=== PATIENT | female | born 1995 | race Two or more races ===

== ENCOUNTER 2016-05-14 21:31 | Emergency (ER) | payer OTHER ==
[2016-05-14] MEDS ORDERED: Ibuprofen TAB* 600 MG PO ONE (22:41)
[2016-05-14] MEDS ORDERED: NS 0.9% 1000 ML* 1,000 ML IV ONE (22:50)
--- NOTE | 2016-05-14 22:56 | ED ---
Influenza-Like Illness - HPI Summary HPI Summary: Pt here w/ flu-like sx x 24 hours. Started as dry cough around 18:00 last night - progressed to worse cough with SANTIAGO and low back pain/body aches. She has decreased appetite and vomited once. Has been able to drink fluids the past 1 hour but has not been drinking all day. Reports she took a tylenol earlier today. No diarrhea or ab pain. Denies nasal congestion, otalgia, rash. Boyfriend has same sx and is here as well. Pt received influenza vaccine as well as meningococcal vaccine. Also reports vaginal itching, irritation and d/c x 2 months. Has tried amoxicillin she has left over as well as monistat w/o relief. Has unprotected intercourse with boyfriend at times. Denies pelvic pain. - History of Current Complaint Chief Complaint: EDGeneral Time Seen by Provider: 05/14/16 22:29 Hx Obtained From: Patient - Allergy/Home Medications Allergies/Adverse Reactions: Allergies Allergy/AdvReac Type Severity Reaction Status Date / Time No Known Allergies Allergy Verified 05/14/16 22:15 PMH/Surg Hx/FS Hx/Imm Hx Previously Healthy: Yes Endocrine/Hematology History: Denies: Autoimmune Disease Respiratory History: Denies: Hx Asthma Infectious Disease History: No Infectious Disease History: Denies: Traveled Outside the [place] in Last 30 Days - Family History Known Family History: Positive: None - Social History Occupation: Student Lives: With Family Alcohol Use: Occasionally Substance Use Type: Reports: Marijuana - occasionally Hx Tobacco Use: No Smoking Status (MU): Never Smoked Tobacco Review of Systems Constitutional: Other - see HPI Eyes: Negative ENT: Negative Negative: Chest Pain Positive: Cough - see HPI Gastrointestinal: Other - see HPI Positive: see HPI Musculoskeletal: Other - see HPI Skin: Negative Positive: Headache. Negative: Weakness, Paresthesia, Numbness, Syncope, Slurred Speech Psychological: Normal All Other Systems Reviewed And Are Negative: Yes Physical Exam Triage Information Reviewed: Yes Vital Signs On Initial Exam: Initial Vitals Temp Pulse Resp BP Pulse Ox 100.6 F 117 16 105/64 100 05/14/16 21:40 05/14/16 21:40 05/14/16 21:40 05/14/16 21:40 05/14/16 21:40 Vital Signs Reviewed: Yes Appearance: Positive: No Pain Distress, Well-Nourished - appears fatigued Skin: Positive: Warm, Dry - flushed cheeks Head/Face: Positive: Normal Head/Face Inspection - sinuses NTTP Eyes: Positive: Normal, EOMI, Conjunctiva Clear ENT: Positive: Normal ENT inspection, Hearing grossly normal, Pharynx normal, TMs normal. Negative: Nasal congestion, Nasal drainage, Tonsillar swelling, Tonsillar exudate Neck: Positive: Supple, Nontender, No Lymphadenopathy Respiratory/Lung Sounds: Positive: Clear to Auscultation - coughing w/ deep inspiration, Breath Sounds Present. Negative: Rales, Rhonchi, Wheezes Cardiovascular: Positive: Pulses are Symmetrical in both Upper and Lower Extremities, Tachycardia, S1, S2 Abdomen Description: Positive: Nontender, No Organomegaly, Soft. Negative: CVA Tenderness (R), CVA Tenderness (L) Bowel Sounds: Positive: Present Pelvic Exam: Positive: external exam normal, bimanual exam normal, no cerv. motion tender, no masses, active bleeding, other - difficult to asses for infectious d/c with heavy menstrual flow but nothing suspicious observed. Negative: cervicitis Musculoskeletal: Positive: Normal, Strength/ROM Intact Neurological: Positive: Normal, Sensory/Motor Intact, Alert, Oriented to Person Place, Time, CN Intact II-III Psychiatric: Positive: Normal Diagnostics - Vital Signs Vital Signs Temp Pulse Resp BP Pulse Ox 05/14/16 21:40 100.6 F 117 16 105/64 100 - Laboratory Lab Statement: Any lab studies that have been ordered have been reviewed, and results considered in the medical decision making process. Re-Evaluation - Re-Evaluation First Eval Change: Improved - minimal improvement - tolerating PO's well Flu Symptom Course/Dx - Course Course Of Treatment: Pt's rapid influenza swab was delayed for processing but eventually revealed to be (+) for Type A. She had little to no relief of sx w/ ibuprofen and 1L of NS. Temp increased from 100 to 102+ F and BP lower at times , but recheck in room was 110's/70's. HR still in 110's. A pelvic exam was performed as pt reports vaginal sx - no PID is observed so tx will be held until swabs return. Pt's CXR is neg for acute pathology (wet read). Acetaminophen, 2 additional liters of fluid and labs ordered to asses for sepsis. Recheck of pt's vital signs indicate a steady improvement in BP, HR now low 100's and temp under 100. Pt sitting up in bed, eating, watching TV. Will d/ c home w/ tamiflu. Dr. Dukes aware. - Diagnoses Provider Diagnoses: Influenza A, Dehydration - Physician Notifications Discussed Care Of Patient With: Dr. Dukes Discharge - Discharge Plan Condition: Stable Disposition: HOME Prescriptions: Oseltamivir CAP* [Tamiflu CAP*] 75 mg PO BID #9 cap Sulfamethox/Trimethoprim DS* [Bactrim DS 800/160 TAB*] 1 tab PO BID #10 tab Patient Education Materials: Influenza (ED), Dehydration (ED) Forms: *School Release, *Work Release Referrals: [facility] REFERR[facility] [Outside] Additional Instructions: Rest Alternate ibuprofen and acetaminophen to reduce fever, headache Complete course of tamiflu Follow-up with PCP or return to ED if symptoms worsen
[2016-05-15] MEDS ORDERED: Acetaminophen TAB* 325 MG PO ONE (01:00)
[2016-05-15] MEDS ORDERED: NS 0.9% 1000 ML* 2,000 ML IV ONE (01:00)
[2016-05-15] MEDS ORDERED: Oseltamivir CAP* 75 MG PO ONE (01:38)
[2016-05-15 01:46] LABS: Urine Bacteria 1+ (Absent); Urine Bilirubin Negative (Negative); Urine Glucose Negative (Negative); Urine Nitrite Negative (Negative)
[2016-05-15 02:11] VITALS: BP 103/59
--- NOTE | 2016-05-15 07:51 | RAD ---
INDICATION: Cough and fever COMPARISON: None TECHNIQUE: PA and lateral views of the chest were obtained. FINDINGS: The heart and mediastinum are normal in size and contour. The lungs are grossly clear. There is no evidence of large pleural effusion. Visualized bones are normal for the patient's age. There is no radiographic evidence of free air beneath the diaphragm IMPRESSION: No radiographic evidence of acute cardiopulmonary disease.
--- NOTE | 2016-05-18 07:28 | PN ---
Progress Note - Progress Note Note: Patient urine culture grew E coli >100,000. Called patient and told her that sent script for bactrim twice a day for 5 days and to start that along with flu medication.
== END 2016-05-15 03:46 | disposition home or self-care (01) ==
LOC: EDSEX → ED 21:31
DX: J11.1 Influenza due to unidentified influenza virus with other respiratory manifestations (principal); E86.0 Dehydration; R05 Cough; R51 Headache; R11.10 Vomiting, unspecified
CPT/HCPCS: 71020; 81003; 81015; 87077; 87086; 87186; 87480; 87491; 87502; 87510; 87591; 87661; 99283; A9270-GY

== ENCOUNTER 2016-11-30 14:00 | Emergency (ER) | payer OTHER ==
[2016-11-30 14:08] VITALS: BP 109/64
--- NOTE | 2016-11-30 14:21 | UC ---
Complaint Female HPI - HPI Summary HPI Summary: 21 y/o female presents to the urgent care c/o of a brown vaginal discharge for the past 2 days. Pt has had recurrent BV and yeast infections for the past year. Pt states her vulva itches and is burning on urination. Pt denies fever, pelvic pain, vaginal bleeding,abdominal pain, no HX of STD's, N/V/.D. LMP: 2016 with regular menstrual cycles. Last PAP done last year negative. Pt is not sexually active. No taking any OCP - History Of Current Complaint Chief Complaint: UCGU Stated Complaint: PERSONAL Time Seen by Provider: 11/30/16 14:10 Hx Obtained From: Patient Hx Last Menstrual Period: 11/12/16 ?: No Onset/Duration: Gradual Onset, Lasting Days - 2 days Timing: Constant Severity Initially: Mild Severity Currently: Moderate Pain Intensity: 5 - touch Pain Scale Used: 0-10 Numeric Character: Burning Aggravating Factor(s): Urination Alleviating Factor(s): Nothing Associated Signs And Symptoms: Positive: Vaginal Discharge - brownish vaginal discharge, Genital Swelling - mild irritation. Negative: Fever, Back Pain, Vaginal Bleeding/Discharge, Nausea, Vomiting(# Of Episodes =), Genital Blisters , Retained Foregin Body (Specify) - Risk Factors Ectopic Risk Factor: Negative Ovarian Torsion Risk Factor: Negative - Allergies/Home Medications Allergies/Adverse Reactions: Allergies Allergy/AdvReac Type Severity Reaction Status Date / Time No Known Allergies Allergy Verified 05/14/16 22:15 Home Medications: Home Medications Cetirizine* [ZyrTEC 10 MG TAB*] 11/30/16 [History] Turmeric (Curcuma Longa) [Turmeric] 450 mg PO 11/30/16 [History] PMH/Surg Hx/FS Hx/Imm Hx Previously Healthy: Yes - Pt denies PMHX - Surgical History Surgical History: None - Family History Known Family History: Positive: Diabetes Family History: Dyslipidemia, Colon CA - Social History Occupation: Employed Full-time Lives: With Family Alcohol Use: Occasionally Substance Use Type: Marijuana Substance Use Comment - Amount & Last Used: not in the past 4 months Smoking Status (MU): Never Smoked Tobacco Review of Systems Constitutional: Negative Skin: Negative Eyes: Negative ENT: Negative Respiratory: Negative Cardiovascular: Negative Gastrointestinal: Negative, Other - Vaginal brown discharge Genitourinary: Negative, Frequency Motor: Negative Neurovascular: Negative Musculoskeletal: Negative Neurological: Negative Psychological: Negative Is Patient Immunocompromised?: No All Other Systems Reviewed And Are Negative: Yes Physical Exam Triage Information Reviewed: Yes Appearance: Well-Appearing, No Pain Distress, Well-Nourished Vital Signs: Initial Vital Signs Temp 98.2 F 11/30/16 14:02 Pulse 78 11/30/16 14:02 Resp 18 11/30/16 14:02 BP 109/64 11/30/16 14:02 Pulse Ox 99 11/30/16 14:02 Vital Signs Reviewed: Yes Eye Exam: Normal Eyes: Positive: Conjunctiva Clear - PERRLA, EOMI ENT Exam: Normal ENT: Positive: Normal ENT inspection, Hearing grossly normal, Pharynx normal, TMs normal Neck exam: Normal Neck: Positive: Supple, Nontender, No Lymphadenopathy Respiratory Exam: Normal Respiratory: Positive: Chest non-tender, Lungs clear, Normal breath sounds Cardiovascular Exam: Normal Cardiovascular: Positive: RRR, No Murmur, Pulses Normal, Brisk Capillary Refill Abdominal Exam: Normal Abdomen Description: Positive: Nontender, No Organomegaly, Soft, Other: - Pelvic: I was assisted by the nurse Cristiana. External genitalia within normal limits. There is no lesions there is no masses noted. Speculum exam: The vaginal de dios are within normal limits w/ white and some brown vaginal discharge , no lesions or rashes. The cervix is closed with no lesions or masses. There is no CMT's, and no adnexal masses. Sample sent to Lab for affirm to r/o BV and Candidiasis. Rectal: No lesions, no hemorrhoids,. Negative: CVA Tenderness (R), CVA Tenderness (L) Bowel Sounds: Positive: Present Musculoskeletal Exam: Normal Musculoskeletal: Positive: Strength Intact, ROM Intact, No Edema Neurological Exam: Normal Psychological Exam: Normal Skin Exam: Normal Complaint Female Dx - Course Course Of Treatment: 21 y/o female presents to the urgent care c/o of a brown vaginal discharge for the past 2 days. Pt has had recurrent BV and yeast infections for the past year. Pt states her vulva itches and is burning on urination. Pt denies fever, pelvic pain, vaginal bleeding,abdominal pain, no HX of STD's, N/V/.D. LMP: 11/12/2016 with regular menstrual cycles. Last PAP done last year negative. Pt is not sexually active. No taking any OCP. HX obtained, UA and pregnanacy test ordered, Results: negative. Pt with brown vaginal discharge on Pelvic examination. Probably remnant for las Menstrual cycle. Most likely BV. Sample sent to the lab to r/o BV or Candidiasis. Pt Rx Metronidazole Vaginal cream to alleviate symptoms. Pt educated on BV. Advised if any othr abnormal finding on results, she will be contacted for further management. Pt understood and agreed. - Differential Dx/Diagnosis Differential Diagnosis/HQI/PQRI: Cervicitis, Pelvic Inflammatory Disease, , Renal Colic, Sexually Transmitted Disease, Urinary Tract Infection, Other - BV, candidiasisi Provider Diagnoses: 1- Bacterial Vaginosis Discharge - Discharge Plan Condition: Stable Disposition: HOME Prescriptions: metroNIDAZOLE VAGINAL 0.75%* 1 applic VAGINAL BEDTIME #1 box Patient Education Materials: Bacterial Vaginosis (ED) Referrals: [facility] REFERR[facility] [Outside] Additional Instructions: 1- Please apply medications as directed. 2- Specimen were sent to lab, if anything abnormal you will receive a call from us for further treatment. 3- If symptoms do not improve or worsen please return to the urgent care or f/u with your PCP for further management
--- NOTE | 2016-12-02 17:00 | ED ---
Progress - Progress Note Progress Note: CALL PATIENT. (+) GARDNERELLA. CONTINUE METROGEL VAGINAL. F/U PCP OR OBGYN IF WORSE Course/Dx - Course Course Of Treatment: 21 y/o female presents to the urgent care c/o of a brown vaginal discharge for the past 2 days. Pt has had recurrent BV and yeast infections for the past year. Pt states her vulva itches and is burning on urination. Pt denies fever, pelvic pain, vaginal bleeding,abdominal pain, no HX of STD's, N/V/.D. LMP: 11/12/2016 with regular menstrual cycles. Last PAP done last year negative. Pt is not sexually active. No taking any OCP. HX obtained, UA and pregnanacy test ordered, Results: negative. Pt with brown vaginal discharge on Pelvic examination. Probably remnant for las Menstrual cycle. Most likely BV. Sample sent to the lab to r/o BV or Candidiasis. Pt Rx Metronidazole Vaginal cream to alleviate symptoms. Pt educated on BV. Advised if any othr abnormal finding on results, she will be contacted for further management. Pt understood and agreed. - Diagnoses Provider Diagnoses: Gardnerella associated vaginal discharge
== END 2016-11-30 15:20 | disposition home or self-care (01) ==
LOC: UCEAST 14:00
DX: N76.0 Acute vaginitis (principal); B96.89 Other specified bacterial agents as the cause of diseases classified elsewhere
CPT/HCPCS: 81003; 84702; 87480; 87510; 99212; G0463

== ENCOUNTER 2017-07-14 18:08 | Emergency (ER) | payer OTHER ==
[2017-07-14 18:27] VITALS: BP 124/76
[2017-07-14] MEDS ORDERED: Ibuprofen TAB* 600 MG PO ONE (18:48)
--- NOTE | 2017-07-14 19:01 | UC ---
Kae Burns Edward, scribed for Melinda Orta MD on 07/14/17 at 1813 . Cardiac HPI - HPI Summary HPI Summary: 22 y/o female presents to [facility] c/o sharp intermittnet right upper CP this morning after waking up, with radiation to the R shoulder and upper back. Pain intermittently throughout the day. Pain is dull currently, with radiation to R shoulder and back. Pain slightly aggravated with breathing. Pain increases with ROM of neck. No sob, suarez, vision changes. No trauma. Last night the pt states she was emotional following a recent breakup with boyfriend. Associated sx: nausea this morning (none now), decreased appetite today (ate 1 hr ago and feels better) LNMP 2 weeks ago. Pt's medications reviewed on visit. Pt takes tumeric allergy pill occasionally. [place] teeth removal 3 years ago. Marijuana use (last 1 week ago). FHx HTN, TB, WI and CVA on mother's side, DM and HLD on father's side. - History of Current Complaint Stated Complaint: CHEST PAIN Hx Obtained From: Patient Hx Last Menstrual Period: 11/12/16 Onset/Duration: Sudden Onset, Lasting Hours Initial Severity: Mild Current Severity: None Chest Pain Location: Upper Sternal Character: Dull/Aching, Sharp/Stabbing - this morning- resolved Aggravating Factor(s): Deep Breaths Associated Signs & Symptoms: Positive: Chest Pain, Recent Stress, Nausea/ Vomiting - nausea - Allergy/Home Medications Allergies/Adverse Reactions: Allergies Allergy/AdvReac Type Severity Reaction Status Date / Time No Known Allergies Allergy Verified 07/14/17 18:27 Home Medications: Home Medications NK [No Home Medications Reported] 07/14/17 [History Confirmed 07/14/17] PMH/Surg Hx/FS Hx/Imm Hx Previously Healthy: No Other Cardiovascular History: Negative: WI, HTN Other Respiratory History: Negative: COPD - Surgical History Surgical History: None - Family History Known Family History: Positive: Hypertension, Diabetes Family History: HTN, TB, [place] and CVA on mother's side, DM and HLD on father's side. - Social History Occupation: Student Lives: With Family - sister - good support Alcohol Use: Occasionally Substance Use Type: Marijuana Substance Use Comment - Amount & Last Used: not in the past 4 months Smoking Status (MU): Never Smoked Tobacco Review of Systems Constitutional: Negative Skin: Negative Eyes: Negative ENT: Negative Respiratory: Negative Cardiovascular: Chest Pain Gastrointestinal: Nausea, Other - decreased appetite Genitourinary: Vaginal/Penile Discharge - brown/black mucous Motor: Negative Neurovascular: Negative Musculoskeletal: Arthralgia - pain at back and R shoulder Neurological: Negative Psychological: Negative All Other Systems Reviewed And Are Negative: Yes Physical Exam Triage Information Reviewed: Yes Appearance: Well-Appearing, No Pain Distress, Well-Nourished, Other: - resting comfortable, speaking full easy relaxed sentences, easily changes position Vital Signs: Initial Vital Signs Temp 98.2 F 07/14/17 18:20 Pulse 88 07/14/17 18:20 Resp 16 07/14/17 18:20 BP 124/76 07/14/17 18:20 Pulse Ox 100 07/14/17 18:20 Vital Signs Reviewed: Yes Eyes: Positive: Conjunctiva Clear ENT: Positive: Hearing grossly normal, Other - mmoist Dental Exam: Normal Neck exam: Normal Neck: Positive: Supple, Nontender, No Lymphadenopathy Respiratory Exam: Normal Respiratory: Positive: Lungs clear, Normal breath sounds, No respiratory distress, No accessory muscle use, Other: - Pt with reproducible pain upper anterior chest wall and extends to right trapezius Cardiovascular Exam: Normal Cardiovascular: Positive: RRR, No Murmur, Pulses Normal Abdominal Exam: Normal Abdomen Description: Positive: Nontender, No Organomegaly, Soft Bowel Sounds: Positive: Present Musculoskeletal: Positive: Other: - Full AROM upper ext Pt with pain right trapezius and right anterior shoulder with ROM against resistance of upper ext and rotation, left laterl neck and flexion - pt reports reproduction of same pain Neurological Exam: Normal Neurological: Positive: Alert Psychological Exam: Normal Skin Exam: Normal Diagnostics - Radiology CXR Xray Interpretation: No Acute Changes - No active cardiopulmonary disease is noted. No changes noted since May 15, 2016. Radiology Interpretation Completed By: Radiologist - ED PHYSICIAN REVIEWS AND AGREES - EKG Cardiac Rate: NL Cardiac Rhythm: Sinus: Normal - [address] Segment: Normal - 18:14 - No acute ST T wave changes. No STEMI. Re-Evaluation - Re-Evaluation 1 Re-Evaluation Time: 19:30 Comment: Review CXR, plan to d/c - Assessment/Plan Course Of Treatment: PT with right anterior upper chest wall pain and right trap pain - increasing with rom and direct palp - started this morning, mild and intermittend today. No concern for CAD - pt with + fam hx but no other risk factors and on concerning EKG. considered PE - no risk factors, PERC =0. Will give motrin. cxr. anticipate discharge - MS pain - Clinical Impression Provider Diagnoses: musculoskeletal chest wall pain Discharge - Sign-Out/Discharge Documenting (check all that apply): Discharge/Admit/Transfer - Discharge Plan Condition: Stable Disposition: HOME Patient Education Materials: Muscle Spasm (ED), Chest Wall Pain (ED) Referrals: No Primary Care Phys,NOPCP [Primary Care Provider] - Additional Instructions: - Okay to alternate ibuprofen (Advil, Motrin) and Tylenol product (Tylenol or [place]) every 3 hours for pain or fever. Take with food. Do NOT take for more than 4-5 days. - Apply heat to your upper back and right side upper chest. Once your muscles are warm, slow gentle exercises to stretch your muscles - Avoid heavy lifting or hanging your back pack or purse on one shoulder - If you pain increases, you develop shortness of breath, headache, vomiting or any other concerns it is recommended you go to the emergency department for further evaluation The documentation as recorded by the Kae wei Edward accurately reflects the service I personally performed and the decisions made by , Melinda Orta MD.
--- NOTE | 2017-07-14 19:25 | RAD ---
Indication: Right-sided chest pain. 2 views of the chest including dual energy PA views demonstrates no mediastinal shift. Heart is of normal size and configuration. Lung ruffin appear clear. When compared to previous exam of May 15, 2016 no significant change is noted. IMPRESSION: No active cardiopulmonary disease is noted. No changes noted since May 15, 2016.
== END 2017-07-14 19:35 | disposition home or self-care (01) ==
LOC: UCEAST 18:08
DX: R07.89 Other chest pain (principal); R11.0 Nausea; N89.8 Other specified noninflammatory disorders of vagina
CPT/HCPCS: 71046; 93005; 99212; A9270-GY; G0463